=== PATIENT | female | born 1995 | race Caucasian/White ===

== ENCOUNTER 2018-04-27 14:56 | Emergency (ER) | payer OTHER, MEDICAID ==
[2018-04-27 15:08] VITALS: BP 151/79
--- NOTE | 2018-04-27 15:44 | UC ---
Complaint Female HPI - HPI Summary HPI Summary: 22 year old female with no significant pmhx here with vaginal discomfort. She denies vaginal discharge. No fever, increased frequency or hematuria. Reports pain when urine touches her vagina. - History Of Current Complaint Chief Complaint: UCGU Stated Complaint: POSSIBLE UTI Time Seen by Provider: 04/27/18 15:31 Hx Last Menstrual Period: 04/05/18 Onset/Duration: Sudden Onset Pain Intensity: 10 - Allergies/Home Medications Allergies/Adverse Reactions: Allergies Allergy/AdvReac Type Severity Reaction Status Date / Time aspirin Allergy Intermediate Hives Verified 04/27/18 15:08 PMH/Surg Hx/FS Hx/Imm Hx Previously Healthy: No - Surgical History Surgical History: Yes Surgery Procedure, Year, and Place: x3 - Social History Alcohol Use: Occasionally Substance Use Type: None Smoking Status (MU): Never Smoked Tobacco Review of Systems Constitutional: Negative Skin: Negative Eyes: Negative ENT: Negative Respiratory: Negative Cardiovascular: Negative Gastrointestinal: Negative Genitourinary: Negative Motor: Negative Neurovascular: Negative Musculoskeletal: Negative Neurological: Negative Psychological: Negative All Other Systems Reviewed And Are Negative: Yes Physical Exam Triage Information Reviewed: Yes Appearance: Well-Appearing, No Pain Distress Vital Signs: Initial Vital Signs Temp 37.2 C 04/27/18 15:04 Pulse 75 04/27/18 15:04 Resp 18 04/27/18 15:04 BP 151/79 04/27/18 15:04 Pulse Ox 99 04/27/18 15:04 Respiratory Exam: Normal Cardiovascular Exam: Normal Pelvic Exam: Positive: Bimanual Exam Normal, Other - ulcerative lesion between the rectum and vagina No other lesions to the external genitalia. Negative: No Cerv. Motion Tender, No Masses Complaint Female Dx - Differential Dx/Diagnosis Differential Diagnosis/HQI/PQRI: Bartholin Cyst, Urinary Tract Infection, Other Provider Diagnoses: fissus vs. ulcerative disease. She denies any rough sexual intercourse. She denies any concern for early signs of herpes and does not want to be treated for it. Discharge - Sign-Out/Discharge Documenting (check all that apply): Discharge/Admit/Transfer - Discharge Plan Condition: Good Disposition: HOME Prescriptions: Lidocaine 4% TOPICAL* 1 applic .SEE ORDER TID #1 [email or web address] Patient Education Materials: Anal Fissure (ED), Sitz Bath (DC) Referrals: Funmi Ceron MD [Primary Care Provider] - - Billing Disposition and Condition Condition: GOOD Disposition: HOME
== END 2018-04-27 16:30 | disposition home or self-care (01) ==
LOC: UCEAST 14:56
DX: K60.2 Anal fissure, unspecified (principal); Z88.6 Allergy status to analgesic agent
CPT/HCPCS: 81003; 84702; 99212; G0463

== ENCOUNTER 2019-01-10 15:55 | Emergency (ER) | payer MEDICAID, OTHER ==
[2019-01-10] MEDS ORDERED: Ondansetron ODT TAB* 4 MG PO ONE ×2 (18:00→18:53)
--- NOTE | 2019-01-10 18:24 | UC ---
Abdominal Pain Female HPI - HPI Summary HPI Summary: The patient is a 23-year-old female that just finished a 5 day course of both a Z-Duy as well as Tamiflu. She is also on a tapering dose of prednisone. She states that when she takes the prednisone she feels terrible. She was seen at an urgent care center and [place] and was diagnosed as having both a flu and bronchitis. She currently is afebrile and her cough is better. She developed bandlike pain across to her upper abdomen as well as nausea and vomiting 1. His had no diarrhea. She denies any UTI symptoms. - History of Current Complaint Chief Complaint: UCAbdominalPain Stated Complaint: ABDOMINAL PAIN Time Seen by Provider: 01/10/19 17:51 Hx Obtained From: Patient Hx Last Menstrual Period: 01/03/18 Onset/Duration: Gradual Onset, Lasting Hours Timing: Constant Severity Initially: Moderate Severity Currently: Moderate Pain Intensity: 6 Pain Scale Used: 0-10 Numeric Location: Diffuse - band like across upper abdomin Character: Cramping Aggravating Factor(s): Food Alleviating Factor(s): Nothing Associated Signs and Symptoms: Positive: Cough - mild, Decreased Appetite, Nausea, Vomiting - x1. Negative: Fever, Back Pain, Constipation, Blood in Stool , Urinary Symptoms Allergies/Adverse Reactions: Allergies Allergy/AdvReac Type Severity Reaction Status Date / Time aspirin Allergy Intermediate Hives Verified 01/10/19 16:12 Home Medications: Home Medications LevoCETirizine TAB (NF) [Xyzal TAB (NF)] 5 mg PO DAILY 01/10/19 [History Confirmed 01/10/19] PMH/Surg Hx/FS Hx/Imm Hx Previously Healthy: Yes - Surgical History Surgical History: Yes Surgery Procedure, Year, and Place: x3 - Family History Known Family History: Positive: Hypertension - Social History Alcohol Use: None Substance Use Type: None Smoking Status (MU): Never Smoked Tobacco Review of Systems All Other Systems Reviewed And Are Negative: Yes Constitutional: Positive: Negative Skin: Positive: Negative Eyes: Positive: Negative ENT: Positive: Negative Respiratory: Positive: Cough Cardiovascular: Positive: Negative Gastrointestinal: Positive: Abdominal Pain, Vomiting, Nausea Genitourinary: Positive: Negative Motor: Positive: Negative Neurovascular: Positive: Negative Musculoskeletal: Positive: Negative Neurological: Positive: Negative Psychological: Positive: Negative Physical Exam Triage Information Reviewed: Yes Appearance: Well-Appearing, No Pain Distress, Well-Nourished Vital Signs: Initial Vital Signs Temp 98 F 01/10/19 16:06 Pulse 102 01/10/19 16:06 Resp 18 01/10/19 16:06 BP 129/78 01/10/19 16:06 Pulse Ox 100 01/10/19 16:06 Vital Signs Reviewed: Yes Eyes: Positive: Conjunctiva Clear ENT: Positive: Hearing grossly normal, Uvula midline. Negative: Nasal congestion, Nasal drainage, Trismus, Muffled voice, Hoarse voice Neck: Positive: Supple, Nontender, No Lymphadenopathy Respiratory: Positive: Lungs clear, Normal breath sounds, No respiratory distress, No accessory muscle use Cardiovascular: Positive: RRR, No Murmur Abdomen Description: Positive: Soft. Negative: Nontender - sligh ruq/epigastric /luq tenderness, Distended, Guarding Bowel Sounds: Positive: Present Musculoskeletal: Positive: ROM Intact, No Edema Neurological: Positive: Alert Psychological Exam: Normal Skin Exam: Normal Diagnostics - Laboratory Diagnostic Studies Completed/Ordered: UA (-) leuks,tr ketone Re-Evaluation - Re-Evaluation First Eval Re-Evaluation Time: 18:39 Change: Improved - decreased pain, no nausea Abd Pain Female Course/Dx - Differential Dx/Diagnosis Provider Diagnosis: Gastritis Discharge - Sign-Out/Discharge Documenting (check all that apply): Patient Departure All imaging exams completed and their final reports reviewed: No Studies - Discharge Plan Condition: Stable Disposition: HOME Prescriptions: Ondansetron TAB* [Zofran Tab*] 4 mg PO Q6H PRN #10 tab PRN Reason: Nausea Patient Education Materials: Gastritis (ED) Referrals: Funmi Ceron MD [Primary Care Provider] - 1 Day (if not better) Additional Instructions: [place] 2 tablespoons every 2 hours while awake for 2-3 days recheck for new or worsening symptoms or if not able to tolerate food tomorrow stop prednisone - Billing Disposition and Condition Condition: STABLE Disposition: Home
[2019-01-10 18:36] VITALS: BP 121/75
[2019-01-10] MEDS ORDERED: Ondansetron ODT TAB* 4 MG ONE (18:55)
== END 2019-01-10 18:45 | disposition home or self-care (01) ==
LOC: UCEAST 15:55
DX: K29.70 Gastritis, unspecified, without bleeding (principal); R05 Cough; Z88.6 Allergy status to analgesic agent
CPT/HCPCS: 81003; 99212; A9270-GY; G0463